=== PATIENT | male | born 1975 | race Two or more races ===

== ENCOUNTER 2024-03-30 21:47 | Emergency (ER) | payer MEDICAID ==
[~2024-03-30] VITALS: Ht 162.6 cm; Wt 90.7 kg
[2024-03-30 22:26] VITALS: BP 148/84; TEMP 98
[2024-03-30] MEDS ORDERED: TDAP [DIPH/PERTUSSIS/TET] 0.5 ML VIAL IM ONE (23:03)
[2024-03-30] MEDS: TDAP [DIPH/PERTUSSIS/TET] 0.5 ML VIAL IM ONE (23:16)
[2024-03-30 23:54] VITALS: O2SAT 99
== END 2024-03-30 23:55 | disposition home or self-care (01) ==
LOC: ER 22:00
DX: S61.211A Laceration without foreign body of left index finger without damage to nail, initial encounter (principal); W26.0XXA Contact with knife, initial encounter; Y93.89 Activity, other specified; Y92.090 Kitchen in other non-institutional residence as the place of occurrence of the external cause; Y99.8 Other external cause status
CPT/HCPCS: 90715